=== PATIENT | female | born 1960 | race Caucasian/White ===

== ENCOUNTER 2017-02-24 14:23 | Emergency (ER) | payer SELFPAY ==
[~2017-02-24 14:23] MED LIST: BACT800T5 PO; BUPR75TA PO; CEPH-460 PO; LISI-515 PO; METF1000 PO; MONT10TA4 PO
[2017-02-24 14:28] VITALS: BP 167/77; PULSE 72; RESP 16; TEMP 98.4; O2SAT 98
--- NOTE | 2017-02-24 14:41 | PD ---
Physical Exam Time Seen by Provider: 14:39 Narrative 56 y/o female with one week chest pain. Reports outpatient imaging ordered by a chiropractor shows possible pneumonia and she was sent here. Vital signs reviewed. Seen at triage desk. Awaiting bed placement. Data Data Last Documented VS Vital Signs Date Time Temp Pulse Resp B/P Pulse Ox O2 Delivery O2 Flow Rate FiO2 02/24/17 14:28 98.4 72 16 167/77 98 Room Air [facility] Medical Record Reviewed: Yes Supervised Visit with LEW: No Cesar Tamayo Feb 24, 2017 14:40
[2017-02-24 16:54] VITALS: BP 164/77; PULSE 63; RESP 16; O2SAT 99
[2017-02-24] MEDS ORDERED: SODIUM CHLORIDE 0.9% FLUSH 10 ML FLUSH IVF PRN (17:00)
[2017-02-24] MEDS ORDERED: ASPIRIN 81 MG CHEW TAB PO ONE (17:00)
[2017-02-24] MEDS ORDERED: RANI150T PO ×2 (17:00→20:01)
--- NOTE | 2017-02-24 17:04 | PD ---
HPI Chief Complaint: Abnormal Results Time Seen by Provider: 16:59 Travel History International Travel<30 days: No Contact w/Intl Traveler<30days: No Traveled to known affect area: No History of Present Illness HPI 56-year-old female presents to the emergency department for evaluation of left- sided chest pain that started on Tuesday, 5 days ago. Patient states the pain is worse with movement and deep breathing. She states that she saw her chiropractor today who did lessen the pain slightly when he "adjusted me". She states her chiropractor did an x-ray of thoracic spine and told her that he thought she had pneumonia. Patient reports a mild dry cough. No congestion. No fevers or chills. No shortness of breath. She had no recent surgery or travel. No hemoptysis. No history of DVT or PE. Patient has history of diabetes, anxiety, hypertension, GERD. She is out of all her medications except for her metformin. Patient states she has taken ibuprofen and Tylenol today for her pain. No abdominal pain. No nausea, vomiting, diarrhea. PFSH Past Medical History Asthma: Yes Depression: Yes High Cholesterol: Yes Diabetes: Yes Patient Takes Glucophage: Yes Diminished Hearing: No Hypertension: Yes Influenza Vaccination: No Past Surgical History Hysterectomy: Yes Tonsillectomy: Yes (TONSILS & ADENOIDS) Social History Alcohol Use: No Tobacco Use: No Substance Use: No Allergies-Medications (Allergen,Severity, Reaction): Coded Allergies: Egg Allergy (Verified Allergy, Severe, Hives, 02/24/17) Macrobid (Verified Allergy, Severe, Hives, 02/24/17) Neomycin (Verified Allergy, Severe, 02/24/17) BLISTER Reported Meds & Prescriptions Reported Meds & Active Scripts Active Aspirin EC (Aspirin) 81 Mg Tabdr 81 Mg PO DAILY 30 Days Ranitidine (Ranitidine HCl) 150 Mg Tab 150 Mg PO BID Montelukast (Montelukast Sodium) 10 Mg Tab 10 Mg PO HS Bupropion HCl 75 Mg Tab 75 Mg PO BID 30 Days Lisinopril 20 Mg Tab 20 Mg PO DAILY Metformin (Metformin HCl) 1,000 Mg Tab 1,000 Mg PO BIDPC With meals Review of Systems Except as stated in HPI: all other systems reviewed are Neg Physical Exam Narrative GENERAL: Well-nourished, well-developed female patient, ambulatory. Afebrile. SKIN: Focused skin assessment warm/dry. HEAD: Normocephalic. Atraumatic. EYES: No scleral icterus. No injection or drainage. NECK: Supple, trachea midline. No JVD or lymphadenopathy. CARDIOVASCULAR: Regular rate and rhythm without murmurs, gallops, or rubs. Bilateral radial and pedal pulses 2+. RESPIRATORY: Breath sounds equal bilaterally. No accessory muscle use. Lungs sounds are clear to auscultation. GASTROINTESTINAL: Abdomen soft, non-tender, nondistended. MUSCULOSKELETAL: No cyanosis, or edema. Left chest pain is reproducible with palpation. BACK: Nontender without obvious deformity. No CVA tenderness. Data Data Last Documented VS Vital Signs Date Time Temp Pulse Resp B/P Pulse Ox O2 Delivery O2 Flow Rate FiO2 02/24/17 20:21 Room Air 02/24/17 18:16 68 16 143/71 98 02/24/17 14:28 98.4 Orders Electrocardiogram (02/24/17 ) Basic Metabolic Panel (Bmp) (02/24/17 16:57) Ckmb (Isoenzyme) Profile (02/24/17 16:57) Complete Blood Count With Diff (02/24/17 16:57) Magnesium (Mg) (02/24/17 16:57) Prothrombin Time / Inr (Pt) (02/24/17 16:57) Act Partial Throm Time (Ptt) (02/24/17 16:57) Troponin I (02/24/17 16:57) Chest, Single Ap (02/24/17 16:57) Ecg Monitoring (02/24/17 16:57) Bilateral Bp Monitoring (02/24/17 16:57) Iv Access Insert/Monitor (02/24/17 16:57) Oximetry (02/24/17 16:57) Oxygen Administration (02/24/17 16:57) Aspirin Chew (Aspirin Chew) (02/24/17 17:00) Sodium Chloride 0.9% Flush (Ns Flush) (02/24/17 17:00) Labs Laboratory Tests Test 02/24/17 02/24/17 17:20 18:15 White Blood Count 9.6 TH/MM3 Red Blood Count 4.51 MIL/MM3 Hemoglobin 13.0 GM/DL Hematocrit 39.0 % Mean Corpuscular Volume 86.4 FL Mean Corpuscular Hemoglobin 28.8 PG Mean Corpuscular Hemoglobin 33.3 % Concent Red Cell Distribution Width 13.9 % Platelet Count 169 TH/MM3 Mean Platelet Volume 8.4 FL Neutrophils (%) (Auto) 63.4 % Lymphocytes (%) (Auto) 27.5 % Monocytes (%) (Auto) 5.2 % Eosinophils (%) (Auto) 3.5 % Basophils (%) (Auto) 0.4 % Neutrophils # (Auto) 6.1 TH/MM3 Lymphocytes # (Auto) 2.6 TH/MM3 Monocytes # (Auto) 0.5 TH/MM3 Eosinophils # (Auto) 0.3 TH/MM3 Basophils # (Auto) 0.0 TH/MM3 CBC Comment AUTO DIFF Differential Comment AUTO DIFF CONFIRMED Platelet Estimate LOW Platelet Morphology Comment NORMAL Prothrombin Time 9.7 SEC Prothromb Time International 0.9 RATIO Ratio Activated Partial 22.0 SEC Thromboplast Time Sodium Level 136 MEQ/L Potassium Level 4.7 MEQ/L Chloride Level 106 MEQ/L Carbon Dioxide Level 23.3 MEQ/L Anion Gap 7 MEQ/L Blood Urea Nitrogen 14 MG/DL Creatinine 0.73 MG/DL Estimat Glomerular Filtration 82 ML/MIN Rate Random Glucose 134 MG/DL Calcium Level 9.1 MG/DL Magnesium Level 1.6 MG/DL Total Creatine Kinase 70 U/L Troponin I LESS THAN 0.02 NG/ML MDM Medical Decision Making Medical Screen Exam Complete: Yes Emergency Medical Condition: Yes Medical Record Reviewed: Yes Interpretation(s) Last Impressions Chest X-Ray 02/24/17 9097 Signed Impressions: Service Date/Time: February 17:08 - CONCLUSION: Normal examination. Miguel Lopez Jr., MD Differential Diagnosis Pneumonia versus pneumothorax versus chest wall pain versus ACS Narrative Course 56-year-old female presents to the emergency department for evaluation of left chest pain that started roughly 5 days ago. She was told she may have pneumonia by her chiropractor. EKG shows sinus rhythm, heart rate 63, no acute ST changes. CBC, BMP, CK, troponin, magnesium, PTT, PT/INR, chest x-ray are ordered and pending. CBC is unremarkable. BMP shows no acute abnormality. CK is 70. Troponin is less than 0.02. Magnesium is 1.6. Coags show no acute abnormality. Chest x- ray is normal. Dr. Sloan saw and examined patient. He will disposition patient. Scripts Aspirin DR (Aspirin EC)81 Mg Tabdr81 Mg PO DAILY 30 Days Ref 0 Prov:Pito Sloan MD 02/24/17 Ranitidine 150 Mg [id number] Mg PO BID #60 TAB Ref 0 Prov:Pito Sloan MD 02/24/17 Montelukast 10 Mg Tab10 Mg PO HS #30 TAB Ref 0 Prov:Pito Sloan MD 02/24/17 Bupropion HCl 75 Mg Tab75 Mg PO BID 30 Days Ref 0 Prov:Pito Sloan MD 02/24/17 Lisinopril 20 Mg Tab20 Mg PO DAILY #30 TAB Ref 0 Prov:Pito Sloan MD 02/24/17 Metformin 1,000 Mg Tab1,000 Mg PO BIDPC #60 TAB Ref 0 With meals Prov:Pito Sloan MD 02/24/17 Suzette Felton Feb 24, 2017 17:04
[2017-02-24] MEDS ORDERED: ASPI81TA11 PO ×2 (17:11→20:01)
--- NOTE | 2017-02-24 17:45 | RADRPT ---
EXAM DATE/TIME: 02/24/2017 17:08 [place] COMPARISON: No previous studies available for comparison. INDICATIONS : Fever and cough. MEDICAL HISTORY : None. SURGICAL HISTORY : ENCOUNTER: Initial ACUITY: 4 - 6 days PAIN SCORE: 0/10 LOCATION: Bilateral upper chest FINDINGS: A single view of the chest demonstrates the lungs to be symmetrically aerated without evidence of mas s, infiltrate or effusion. The cardiomediastinal contours are unremarkable. Osseous structures are intact. CONCLUSION: Normal examination. Miguel Lopez Jr., MD on February 24, 2017 at 17:43 Board Certified Radiologist. This report was verified electronically.
[2017-02-24 17:54] LABS: AUTOMATED NEUTROPHIL # 6.1 TH/MM3 (1.8-7.7); BASOPHIL % 0.4 % (0.0-2.0); EOSINOPHIL # 0.3 TH/MM3 (0-0.4); EOSINOPHIL % 3.5 % (0.0-4.0); LYMPH % 27.5 % (9.0-44.0); LYMPHOCYTE # 2.6 TH/MM3 (1.0-4.8); MEAN CELL VOLUME 86.4 FL (80.0-100.0); MEAN CORPUSCULAR HEMOGLOBIN 28.8 PG (27.0-34.0); MEAN CORPUSCULAR HGB CONC 33.3 % (32.0-36.0); MONO % 5.2 % (0.0-8.0); NEUT % 63.4 % (16.0-70.0); PLATELET COUNT 169 TH/MM3 (150-450); RED BLOOD COUNT 4.51 MIL/MM3 (4.00-5.30); RED CELL DISTRIBUTION WIDTH 13.9 % (11.6-17.2); WHITE BLOOD COUNT 9.6 TH/MM3 (4.0-11.0)
[2017-02-24 18:03] LABS: INTERNATIONAL NORMALIZED RATIO 0.9 RATIO; PROTHROMBIN TIME - PATIENT 9.7 SEC (9.8-11.6)
[2017-02-24 18:16] VITALS: BP 143/71; PULSE 68; RESP 16; O2SAT 98
[2017-02-24 18:18] LABS: HEMO FLAGS AUTO DIFF
[2017-02-24 19:04] LABS: ANION GAP 7 MEQ/L (5-15); BICARBONATE 23.3 MEQ/L (21.0-32.0); BLOOD UREA NITROGEN 14 MG/DL (7-18); CHLORIDE 106 MEQ/L (98-107); GLOMERULAR FILTRATION RATE 82 ML/MIN (>89); MAGNESIUM 1.6 MG/DL (1.5-2.5); SODIUM (NA) 136 MEQ/L (136-145)
[2017-02-24 19:11] LABS: CREATINE KINASE 70 U/L (26-192); POTASSIUM 4.7 MEQ/L (3.5-5.1)
[2017-02-24 19:33] LABS: PLATELET ESTIMATE SMEAR LOW (NORMAL); PLATELET MORPHOLOGY NORMAL (NORMAL); SCAN/DIFF AUTO DIFF CONFIRMED
[2017-02-24] MEDS ORDERED: BUPR75TA PO (20:01)
[2017-02-24] MEDS ORDERED: METF1000 PO (20:01)
[2017-02-24] MEDS ORDERED: MONT10TA4 PO (20:01)
[2017-02-24] MEDS ORDERED: LISI-515 PO (20:01)
--- NOTE | 2017-02-24 20:02 | PD ---
Data Data Last Documented VS Vital Signs Date Time Temp Pulse Resp B/P Pulse Ox O2 Delivery O2 Flow Rate FiO2 02/24/17 18:16 68 16 143/71 98 Room Air 02/24/17 14:28 98.4 Orders Electrocardiogram (02/24/17 ) Electrocardiogram (02/24/17 16:57) Basic Metabolic Panel (Bmp) (02/24/17 16:57) Ckmb (Isoenzyme) Profile (02/24/17 16:57) Complete Blood Count With Diff (02/24/17 16:57) Magnesium (Mg) (02/24/17 16:57) Prothrombin Time / Inr (Pt) (02/24/17 16:57) Act Partial Throm Time (Ptt) (02/24/17 16:57) Troponin I (02/24/17 16:57) Chest, Single Ap (02/24/17 16:57) Ecg Monitoring (02/24/17 16:57) Bilateral Bp Monitoring (02/24/17 16:57) Iv Access Insert/Monitor (02/24/17 16:57) Oximetry (02/24/17 16:57) Oxygen Administration (02/24/17 16:57) Aspirin Chew (Aspirin Chew) (02/24/17 17:00) Sodium Chloride 0.9% Flush (Ns Flush) (02/24/17 17:00) Labs Laboratory Tests Test 02/24/17 02/24/17 17:20 18:15 White Blood Count 9.6 TH/MM3 Red Blood Count 4.51 MIL/MM3 Hemoglobin 13.0 GM/DL Hematocrit 39.0 % Mean Corpuscular Volume 86.4 FL Mean Corpuscular Hemoglobin 28.8 PG Mean Corpuscular Hemoglobin 33.3 % Concent Red Cell Distribution Width 13.9 % Platelet Count 169 TH/MM3 Mean Platelet Volume 8.4 FL Neutrophils (%) (Auto) 63.4 % Lymphocytes (%) (Auto) 27.5 % Monocytes (%) (Auto) 5.2 % Eosinophils (%) (Auto) 3.5 % Basophils (%) (Auto) 0.4 % Neutrophils # (Auto) 6.1 TH/MM3 Lymphocytes # (Auto) 2.6 TH/MM3 Monocytes # (Auto) 0.5 TH/MM3 Eosinophils # (Auto) 0.3 TH/MM3 Basophils # (Auto) 0.0 TH/MM3 CBC Comment AUTO DIFF Differential Comment AUTO DIFF CONFIRMED Platelet Estimate LOW Platelet Morphology Comment NORMAL Prothrombin Time 9.7 SEC Prothromb Time International 0.9 RATIO Ratio Activated Partial 22.0 SEC Thromboplast Time Sodium Level 136 MEQ/L Potassium Level 4.7 MEQ/L Chloride Level 106 MEQ/L Carbon Dioxide Level 23.3 MEQ/L Anion Gap 7 MEQ/L Blood Urea Nitrogen 14 MG/DL Creatinine 0.73 MG/DL Estimat Glomerular Filtration 82 ML/MIN Rate Random Glucose 134 MG/DL Calcium Level 9.1 MG/DL Magnesium Level 1.6 MG/DL Total Creatine Kinase 70 U/L Troponin I LESS THAN 0.02 NG/ML MDM Supervised Visit with LEW: Yes Narrative Course The history, exam, and medical decision-making in the associated mid-level provider note were completed with my assistance. I reviewed and agree with the findings presented. I attest that I had a [id number] encounter with the patient on the same day, and personally performed and documented my assessment and findings in the medical record. *My assessment and Findings: The 56-year-old woman, presented with what sounds like muscular skeletal chest pain. Went to water dropped on her and she had injured her left side of her chest. She has pain and tenderness there. It did intermittent. It does not sound like cardiac disease. She walks a mile each day with no significant exertion in her symptoms. Movement makes the symptoms worse. With her chiropractor who did an x-ray and said it looked like she had pneumonia so she was referred to the ED. EKG is unremarkable. Labs are normal. Discussed her risks, she does have some risk factors including family history hypertension and high cholesterol. quoted her risk at 1-2% of major adverse cardiac events in the next 6 weeks. She would like to follow up with a primary physician which I think is completely reasonable. Outpatient follow-up. Diagnosis Primary Impression: Chest pain Additional Instruction: Follow-up with the [facility] within the next month. Return to the emergency department worsening chest pain, exertional chest pain, shortness of breath, or any other new or worsening symptoms. Med/Other Pt SpecificInfo: Prescription(s) given Scripts Aspirin DR (Aspirin EC)81 Mg Tabdr81 Mg PO DAILY 30 Days Ref 0 Prov:Pito Sloan MD 02/24/17 Ranitidine 150 Mg [id number] Mg PO BID #60 TAB Ref 0 Prov:Ptio Sloan MD 02/24/17 Montelukast 10 Mg Tab10 Mg PO HS #30 TAB Ref 0 Prov:Pito Sloan MD 02/24/17 Bupropion HCl 75 Mg Tab75 Mg PO BID 30 Days Ref 0 Prov:Pito Sloan MD 02/24/17 Lisinopril 20 Mg Tab20 Mg PO DAILY #30 TAB Ref 0 Prov:Pito Sloan MD 02/24/17 Metformin 1,000 Mg Tab1,000 Mg PO BIDPC #60 TAB Ref 0 With meals Prov:Pito Sloan MD 02/24/17 Disposition: 01 DISCHARGE HOME Condition: Stable Pito Sloan MD Feb 24, 2017 20:01
--- NOTE | 2017-02-26 11:05 | EKG ---
Date Performed: 02/24/2017 Time Performed: 16:59:03 PTAGE: 56 years EKG: Sinus rhythm LOW QRS VOLTAGE IN PRECORDIAL LEADS BORDERLINE ECG NO PREVIOUS TRACING DOCTOR: Pito Calloway Interpretating Date/Time 02/26/2017 10:57:29
== END 2017-02-24 20:57 | disposition home or self-care (01) ==
LOC: NEPE 14:23
DX: R07.89 Other chest pain (principal); E11.9 Type 2 diabetes mellitus without complications; F41.9 Anxiety disorder, unspecified; I10 Essential (primary) hypertension; K21.9 Gastro-esophageal reflux disease without esophagitis; J45.909 Unspecified asthma, uncomplicated; F32.9 Major depressive disorder, single episode, unspecified; E78.00 Pure hypercholesterolemia, unspecified; Z79.899 Other long term (current) drug therapy
CPT/HCPCS: 71010; 80048; 82550; 83735; 84484; 85025; 85610; 85730; 93005; 99285